=== PATIENT | female | born 1960 | race Caucasian/White ===

== ENCOUNTER 2019-04-25 10:59 | Outpatient (CLI) | payer MEDICARE | END 2019-04-25 11:00 | disposition home or self-care (01) | LOC: BICMAMMO 10:59 | PROVIDERS: ATTEND Nurse Practitioner | DX: Z12.31 Encounter for screening mammogram for malignant neoplasm of breast (principal) | CPT/HCPCS: 77063; 77067 ==

== ENCOUNTER 2019-05-13 09:24 | Outpatient (CLI) | payer MEDICARE ==
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
--- NOTE | 2019-05-13 11:04 | ULT ---
LEFT BREAST ULTRASOUND: HISTORY: Abnormal mammogram of 04/25/2019. FINDINGS: Correlation is made with mammograms of 04/25/2017 and today. Sonographic elevation of the left lower inner breast demonstrates no abnormality. IMPRESSION: BIRADS category 2 - benign findings. Return to annual mammographic screening. POS: [facility]
== END 2019-05-13 09:25 | disposition home or self-care (01) ==
LOC: BICMAMMO 09:24
PROVIDERS: ATTEND Nurse Practitioner
DX: R92.2 Inconclusive mammogram (principal)
CPT/HCPCS: 76642; 77065; G0279

== ENCOUNTER 2021-01-14 11:36 | Outpatient (CLI) | payer MEDICARE | END 2021-01-14 11:37 | disposition home or self-care (01) | LOC: BICMAMMO 11:36 | PROVIDERS: ATTEND Nurse Practitioner | DX: Z12.31 Encounter for screening mammogram for malignant neoplasm of breast (principal) | CPT/HCPCS: 77063; 77067 ==